=== PATIENT | female | born 1980 | race Caucasian/White ===

== ENCOUNTER 2017-01-29 19:02 | Emergency (ER) | payer OTHER ==
[~2017-01-29] VITALS: Ht 167.6 cm; Wt 73.9 kg
[~2017-01-29 19:02] MED LIST: ATENOLOL25 M1 PO; CELEXA20 MG PO; CLARITIN 10MG T10 MG PO; FLONASE16 GM; PREDNISONE 10MG10 MG PO; TRI-SPRINTEC1 TAB PO; ZITHROMAX Z PA250 MG PO
[2017-01-29] MEDS ORDERED: FLONASE 50 MCG16 GM (19:55)
[2017-01-29] MEDS ORDERED: MEDROL 4MG. DOSE4 MG PO (19:55)
[2017-01-29] MEDS ORDERED: BROMFED DM COU118 ML PO (19:55)
[2017-01-29] MEDS ORDERED: CEFDINIR 300MG300 MG PO (19:55)
--- NOTE | 2017-01-29 19:55 | Urgent Treatment Center Report ---
History of Present Issue Date/Time Seen by Provider 01/29/171929 Visit Reason Pt arrived:Walked Presenting Problem:PT C/O OF COUGH, SINUS PRESSURE, AND HEADACHE Location if Accident: Onset of symptoms date/time:/ or onset unknown for:MEDICAL HX UNKNOWN Have you (or family members/close friends) recently traveled outside the [place]? N If Yes, where/when: Have you had exposure to infectious disease within the past month? TB? Other? Specify: c/o cough, PND, sore throat, rhinorrhea, nasal congestion, unknown colored sputum x2 weeks now. "starting week 3". Initially started like allergies. Tried zyrtec week one. No improvement. Started claritin and decongestant week 2. Not helping. Denies SOA or wheezing. No fever or chills. No known sick contacts. Source patient Exam Limitations no limitations ALLERGIES Coded Allergies: MDX - Amoxicillin (Amoxicillin) (06/25/09) Converted from Generic Allergy: Amoxicillin Trihydrate Converted from Ingredient Allergy: Amoxicillin MDX - Citalopram (From CELEXA) (06/06/13) MDX - Penicillin (Penicillin) (06/25/09) Converted from Drug Class Allergy: Penicillins Converted from Ingredient Allergy: Penicillins Home Medications Reported Medications Atenolol 12.5 MG PO DAILY #15 Ethinyl Estradiol/Norgestima (Tri-Sprintec) 1 TAB PO DAILY Fluticasone Prop (Flonase) 1 SPRAY NA BID Loratadine (Claritin 10MG) 10 MG PO QHS History Medical History General CAD? No Angina: No WV: No Hypertension? No Hyperlipidemia? No CHF? No DVT? No PE? No COPD? No Asthma? Yes Anemia? No GERD? No Gastric ulcers? No GI Bleed? No Hernia? No Thyroid Problems? No Hypothyroidism? No CVA? No Seizures? No Diabetes? No Renal Insuffiency? No UTI? No Stones? No BPH? No GB Disease: No Nephritic Syndrome? No Asplenia? No Hepatitis? No Sickle Cell Disease? No Arthritis? No Migraines? No Cataracts? No Glaucoma? No MRSA? No HIV? No TB? No Anxiety? No Depression? No Cancer? No More? No Immunization HX DT/Tetanus UNKNOWN Surgical Hx Previous Surgery?Y KNEE SURGERY TONSILS REMOVED X 2 EAR TUBES Social History Smoking Hx Smoker: Never Smoker Tobacco: No Alcohol Alcohol: No Review of Systems All Other Systems Reviewed and Negative Constitutional see HPI, denies malaise Eyes denies drainage ENT see HPI, ear pain (fullness). denies: ear discharge, other (sinus pressure). Respiratory see HPI Cardiovascular denies chest pain Gastrointestinal denies no symptoms reported Musculoskeletal denies joint pain Skin denies rash Psychiatric/Neurological headache (mild, intermittent) Physical Exam Vital Signs Vital Signs Date Time Temp Pulse Resp B/P Pulse O2 O2 Flow FiO2 Ox Delivery Rate 01/29 1957 98.0 72 10 127/69 98 01/29 1945 98.0 72 10 127/ 98 General Appearance normal appearance, no apparent distress Eye Exam - bilateral eye normal exam Ear, Nose, Throat jocy EACs and TMs unremarkable, cobblestoning pharynx w/ thick PND, thick nasal drainage w/ congestion, no maxillary or frontal sinus tenderness Neck non-tender, supple Respiratory Status No: respiratory distress, productive cough, non productive cough. Lung Sounds anterior: lungs clear. posterior: lungs clear. bilateral: lungs clear. Cardiovascular regular rate/rhythm, no peripheral edema, no murmur Neurologic alert, oriented x 3 Mental status normal mood/affect Skin normal color, warm/dry Lymphatic no adenopathy Medical Decision Making LABS/Meds/Orders Pt receiving controlled substance in ED? No Departure Departure Time of Disposition 1951 Disposition DC Home or Self Care(routine) Clinical Impression Primary Impression: Upper respiratory infection Qualifiers: URI type: unspecified URI Qualified Code: J06.9 - Acute upper respiratory infection, unspecified Condition STABLE Referrals VICKI LI (Family) IMMEDIATELY for new or worsening symptoms OR no noticeable improvement over the next 48-72 hours. 911 for difficulty breathing or swallowing. Patient Instructions DI for Viral Upper Respiratory Infection -- Adult Additional Instructions * Monitor Temp. Follow up if fevers develop * Encourage fluids, water, gatorade, powerade, pedialyte if /toddler/child * warm salt water gargles * warm fluids * sore throat lozenges * sleep elevated * humidifier/vaporizer * flonase 2 sprays each nostril daily but may take 2-3 days to notice improvement with it. * Bromfed may cause drowsiness. Know how it effects you (or your child) before driving, caring for small children, or sending your child to school. No other antihistamines/allergy medications while taking bromfed. * Start steroid today. Helps with inflammation therefore, cough and wheezing. Follow directions on package. Rvwd side effects. Pt reports they have taken them before. * start antibiotic today. Be sure to complete entire prescription even if feeling better. Discharge Counseling Counseled pt/family regarding diagnosis, medications/RX, home care, follow up needs Prescriptions Current Visit Scripts CEFDINIR (Cefdinir) 300 MG PO BID #20 CAP D-METHORPHAN HB/P-EPD HCL/BPM (Bromfed Dm Cough Syrup) 10 ML PO QIDP PRN cough #240 ML Fluticasone Propionate (Flonase 50 Mcg Nasal [place]) 2 SPRAY NA DAILY #1 BOT Methylprednisolone (Medrol Dose Hakeem) 4 MG PO UD #1 HAKEEM TAKE DIRECTED ON PACKAGING at 2105
[2017-01-29 19:57] VITALS: BP 127/69
--- OUTSIDE RECORDS SUMMARY | 2017-01-30 15:24 | External Medical Summary Rpt | CCD ---
Author Author , FELICITAS POLK Address Unknown Phone [email or web address] Care Team Providers Care Audiology Assistant Name Role Phone ANDREE FLORIAN, Unavailable Unavailable ANDREE FLORIAN [facility] Unavailable Unavailable LAB, [facility] Maria Teresa LOGAN, DOREEN, Unavailable Unavailable VICKI HITCHCOCK HALL, Unavailable Unavailable JENNIFER VILLA Unavailable Unavailable [facility] Unavailable Unavailable CENTER, [facility] Unavailable Unavailable INC, [facility] GAGAN PEÑA, Unavailable Unavailable [facility] Unavailable Unavailable LABORATORY, [facility] Gabriela Valles MD, Unavailable Unavailable Gabriela Valles MD [facility] Unavailable [facility]available [facility] & CY[facility]Y Unavailable Unavailable LAB, [facility]Y & [facility]TOLOGY LAB REJI MOE, Unavailable Unavailable REJI MOE [facility] Unavailable Unavailable [address]591, [facility] # Unavailable Unavailable [id number], [facility] # [id number] Purpose Continuity of Care Document - 10-23-2008 through 2016 Problems Code Diagnosis DOS Provider Status 493.90 493.90 05-25-2013 [facility], [facility] UNSPECIFIED Hospital 535.00 535.00 05-25-2013 [facility] GASTRITIS, Hospital W/O MENTION OF HEMORRHAGE V14.0 V14.0 05-25-2013 [facility] IN ALLERGY Hospital V242 ROUTINE 08-08-2009 [facility] V7231 ROUTINE 08-08-2009 WOMEN[facility] GYNECOLOGIC HEALTH AL CLINIC OF EXAMINATION [facility] 605 REDUNDANT 06-25-2009 [facility] PHIMOSIS 96409 PREV C/S 06-25-2009 [facility] MENTION JOHN ANTPRTM [facility] COND V270 OUTCOME OF 06-25-2009 WOMEN'S DELIVERY HEALTH SINGLE CLINIC OF LIVEBORN JOHN [facility] V3001 SINGLE 06-25-2009 [facility] BY V221 SUPERVISION 06-20-2009 WOMEN'S OF OTHER HEALTH NORMAL CLINIC OF [place] [facility] 462 ACUTE 06-11-2009 NEW PHARYNGITIS [facility] PSC 3671 MYOPIA 05-22-2009 [facility] 24914 ABNORMAL 04-20-2009 WOMEN'S MATERNAL HEALTH GLUCOSE CLINIC OF [place] ANTEPARTUM [facility] V283 ENCOUNTER 02-15-2009 WOMEN'S ROUTINE HEALTH SCREEN CLINIC OF MALFORMATIO JOHN N [facility] ULTRASONIC V0481 NEED 02-09-2009 WOMEN'S PROPHYLACTI HEALTH C CLINIC OF VACCINATION [place] &INOCULATIO [facility] N FLU V220 SUPERVISION 01-12-2009 WOMEN'S OF NORMAL HEALTH FIRST CLINIC OF [place] [facility] 77863 OTHER 11-30-2008 WOMEN'S SPECIFED HEALTH COMPLICATIO CLINIC OF N JOHN ANTEPARTUM [facility] V745 SCREENING 11-22-2008 PATHOLOGY & EXAMINATION CYTOLOGY FOR LAB VENEREAL DISEASE V8271 SCREENING 11-22-2008 MOLECULAR FOR GENETIC PATHOLOGY DISEASE [facility] STATUS V7242 10-23-2008 [facility] EXAMINATION HEALTH OR TEST CENTRAL POSITIVE BANK ACCT RESULT Allergies, Adverse Reactions, Alerts Type Drug Allergy Adverse Reaction to Substance Substance Reaction Severity Penicillin Unknown Unknown Amoxicillin Unknown Unknown Medications Na ND Rx Da Fi Fi Am Da Di Ph RX Ph St me C No te ll ll ou ys ag ar # ys at rm s nt no ma ic us Or Da si cy ia de te s n re d SO 00 02 0 No DI 40 -1 UM 97 9- Lo 98 20 ng CH 30 14 er LO 9 RI Ac DE ti ve 0. 9% SO FRANCISCO TI ON ON 00 02 0 No DA 64 -1 NS 16 9- Lo ET 08 20 ng RO 02 14 er N 5 HC Ac L ti 4 ve MG /2 ML AL Ib 62 02 0 No up 58 -1 ro 40 9- Lo fe 74 20 ng n 70 14 er 60 1 0M Ac G ti Ta ve bl et OX 00 03 03 0 30 2 WA 22 CL Ac YC 40 -2 -2 .0 L- 17 AR ti OD 60 5- 5- 00 MA 66 KE ve ON 51 20 20 RT 9 E- 20 10 10 DE AC 1 PH RE ET AR K AM MA J IN CY OP # HE N 10 5- 05 32 91 5 [place] 00 03 03 1 60 7 [place] [address] 60 -2 -2 .0 L- 64 OP ti AT 31 5- 5- 00 MA 12 ER ve IN 48 20 20 RT 2 14 10 10 TOR 10 9 PH HN 0, AR G 00 MA 0 CY UN # IT /M 10 L 05 JIM 91 SP 00 11 03 9 30 30 WA 88 CL Ac 67 -0 -1 .0 L- 14 AR ti 70 6- 4- 00 MA 96 KE ve 07 20 20 RT 4 01 09 10 DE 0 PH RE AR K MA J CY # 10 05 91 00 03 03 0 30 10 WA 70 LEE Ac 07 -0 -0 .0 L- 61 LL ti 46 8- 8- 00 MA 57 ve 32 20 20 RT 2 LI 01 10 10 SA 3 PH R AR MA CY # 10 05 91 00 11 01 01 30 30 WA 88 CL Ac 67 -0 -2 .0 L- 14 AR ti 70 6- 8- 00 MA 96 KE ve 07 20 20 RT 4 01 09 10 DE 0 PH RE AR K MA J CY #5 91 00 11 11 00 30 30 WA 88 CL Ac 67 -0 -1 .0 L- 14 AR ti 70 6- 9- 00 MA 96 KE ve 07 20 20 RT 4 01 09 09 DE 0 PH RE AR K MA J CY #5 91 Vital Signs 05-25-2013 02:12 Name Value Interpretat Reference Comment ion Range Body 98.2 [degF] Temperature BP 77 mm[Hg] Diastolic BP Systolic 112 mm[Hg] Heart 66 /min Rate/Pulse O2% 98 % Respiratory 18 /min Rate 05-25-2013 00:29 Name Value Interpretat Reference Comment ion Range BP 71 mm[Hg] Diastolic BP Systolic 130 mm[Hg] Heart 74 /min Rate/Pulse O2% 97 % Respiratory 20 /min Rate Results Labs Lab Lab Date Result Refere Interp Status Commen Order Detail nces retati t Range on COMPREHENSIVE METABOLIC PANEL (05-24-2013 23:30) Glucose 96 74-106 complet 014 mg/dL ed Bld-mCn 23:30 c BUN 12 7-18 complet Bld-mCn 014 mg/dL ed c 23:30 Creat 05-24-2 0.9 0.6-1.0 complet SerPl-m 014 mg/dL ed Cnc 23:30 Creat 05-24-2 95 50-200 complet Cl 014 ML/MIN ed predict 23:30 ed SerPl C-G-vRa te GFR/BSA 72 59- complet .pred 014 ML/MIN ed SerPl 23:30 Schwart z-vRate Sodium 140 136-145 complet SerPl-s 014 mmoL/L ed Cnc 23:30 Potassi 4.1 3.5-5.1 complet um 014 mmoL/L ed SerPl-s 23:30 Cnc Chlorid 103 98-107 complet e 014 mmoL/L ed SerPl-s 23:30 Cnc CO2 27 21.0-32 complet SerPl-s 014 mmoL/L .0 ed Cnc 23:30 Calcium 05-24-2 8.8 8.5-10. complet 014 mg/dL 1 ed SerPl-m 23:30 Cnc Prot 7.8 6.4-8.2 complet SerPl-m 014 gm/dL ed Cnc 23:30 Albumin 05-24-2 4.1 3.4-5.0 complet 014 gm/dL ed SerPl-m 23:30 Cnc Globuli 05-24- 3.7 1.3-3.2 complet n 014 gm/dL ed Ser-mCn 23:30 c Albumin 05-24- 1.1 UNK 1.1-1.8 complet /Glob 014 ed SerPl-m 23:30 Rto Bilirub 0.6 0.2-1.0 complet 014 mg/dL ed SerPl-m 23:30 Cnc AST 05-24-2 8 U/L 15-37 complet SerPl-c 014 ed Cnc 23:30 ALT 05-24- 19 U/L 12-78 complet SerPl-c 014 ed Cnc 23:30 ALP 05-24- 60 U/L 50-136 complet SerPl-c 014 ed Cnc 23:30 B-HCG Ur Ql (05-24-2013 00:50) B-HCG 02-18-2 NEGATIV NEG complet Ur Ql 014 E ed 00:50 URINALYSIS/COMPLETE (05-24-2013 00:50) URINE -18-2 YELLOW YELLOW complet COLOR 014 ed 00:50 URINE 02-18-2 CLEAR CLEAR complet APPEARA 014 ed NCE 00:50 URINE 02-18-2 NEGATIV NEG complet GLUCOSE 014 E ed - 00:50 DIPSTIC K URINE 02-18-2 NEGATIV NEG complet BILIRUB 014 E ed IN - 00:50 DIPSTIC K URINE 02-18-2 NEGATIV NEG complet KETONE 014 E mg/dL ed 00:50 URINE -18-2 1.020 1.005-1 complet SPECIFI 014 UNK .030 ed C 00:50 GRAVITY URINE -18-2 3+ NEG complet BLOOD 014 ed 00:50 URINE -18-2 6.0 UNK 5.0-8.5 complet PH 014 ed 00:50 URINE -18-2 NEGATIV NEG complet PROTEIN 014 E mg/dL ed - 00:50 DIPSTIC K URINE -18-2 0.2 NEG complet UROBILI 014 E.U./dL ed NOGEN - 00:50 DIPSTIC K URINE 02-18-2 NEGATIV NEG complet NITRATE 014 E ed - 00:50 DIPSTIC K URINE 02-18-2 NEGATIV NEG complet LEUK 014 E ed ESTERAS 00:50 E URINE 02-18-2 50-100 0 complet RBC 014 rbc/hpf ed 00:50 URINE 02-18-2 OCC O complet WBC 014 wbc/hpf ed 00:50 URINE -18-2 20-50 0-5 complet SQUAMOU 014 #/hpf ed S CELLS 00:50 Procedures Procedure DOS Code Location Performer Comment CYTP C/V 30833 PATHOLOGY PATHOLOGY AUTO THIN 0 & & LYR CYTOLOGY CYTOLOGY PREPJ SCR LAB LAB MNL RESCR [facility] 630[address] Maria Teresa MONTOYA DISCHARGE 0 CARE G DAY ASSOCIATE MANAGEMEN S T 30 MIN/< SUBQ 12834 [facility] 0 CARE G CARE PER ASSOCIATE DAY E/M S NORMAL CIRCUMCIS 75504 Maria Teresa MONTOYA ION 0 CARE G W/CLAMP/O ASSOCIATE TH DEV S W/BLOCK 35357 [facility], DELIVERY 0 HEALTH ANDREE J ONLY CLINIC OF W/POSTPAR [facility] CARE [place] [facility] 1ST 88092 FAMILY DOREEN, J HOSP/FAHAD 0 CARE G [facility] [place] [address] [facility] DELIVERY 0 PHYSICIAN POPPY ONLY GROUP PCC ANESTHESI 80198 COMMUNITY Maxx MOE 0 ANESTH REJI A OF THE DELIVERY [facility] ONLY LOW 741 [facility] CERVICAL 0 [facility] INC SECTION CUL BACT 85225 [facility] XCPT 0 CLINIC CLINIC URINE LABORATOR LABORATOR BLOOD/STO Y Y OL AEROBIC ISOL CUL BACT 65311 [facility]BINED XCPT 0 PHYSICIAN PHYSICIAN URINE S LAB S LAB BLOOD/STO OL AEROBIC ISOL OPHTH 43677 [facility] 0 VISION GAGAN A XM&EVAL COMPRHNSV ESTAB PT 1/> GLUCOSE 51994 [facility], TOLERANCE 0 HEALTH ANDREE J TEST GTT CLINIC OF 3 SPECIMENS [facility] GLUCOSE 18423 [facility], POST 0 HEALTH ANDREE J GLUCOSE CLINIC OF DOSE [facility] US PREG 46777 [facility], UTERUS 9 HEALTH ANDREE J AFTER 1ST CLINIC OF TRIMEST [place] [facility] IMMUNE 94052 [facility], ADMIN 9 HEALTH ANDREE J H1N1 CLINIC OF IM/NASAL INCL CNSL [facility] GONADOTRO 79428 [facility] S[facility]ERS PIN 9 [facility] CHORIONIC INC INC QUANTITAT GRAYSON ALPHA-FET 03898 [facility] OPROTEIN 9 [facility] [place] [place] [address] T[facility] SANDERS ESTRIOL 9 [facility] INC INC [place] PREG 10753 [facility], UTERUS 9 HEALTH ANDREE J REAL TIME CLINIC OF W/IMAGE DCMTN [place] [facility] CYTP C/V 89044 PATHOLOGY PATHOLOGY AUTO THIN 9 & & LYR CYTOLOGY CYTOLOGY PREPJ SCR LAB LAB MNL RESCR PHYS MOLECULAR 09205 MOLECULAR MOLECULAR DX AMP 9 TARGET PATHOLOGY PATHOLOGY MULTIPLEX LAB LAB 1ST 2 NETWORK NETWORK SEQ INC INC MOLECULAR 11809 MOLECULAR MOLECULAR 9 DIAGNOSTI PATHOLOGY PATHOLOGY CS LAB LAB INTERPRET NETWORK NETWORK ATION & INC INC REPORT MUTATION 18621 MOLECULAR MOLECULAR ID 9 ENZYMATIC PATHOLOGY PATHOLOGY LAB LAB LIG/PRIME NETWORK NETWORK R XTN 1 INC INC SGM EA MOLECULAR 63512 MOLECULAR MOLECULAR DX AMP 9 TARGET PATHOLOGY PATHOLOGY MULTIPLEX LAB LAB EA ADDL NETWORK NETWORK SEQ INC INC MOLEC 29106 MOLECULAR MOLECULAR SEP&ID HI 9 RESOLU PATHOLOGY PATHOLOGY TQ EACH LAB LAB NUCLEIC NETWORK NETWORK ACID PREP INC INC IADNA 65966 PATHOLOGY PATHOLOGY NEISSERIA 9 & & CYTOLOGY CYTOLOGY GONORRHOE LAB LAB AE AMPLIFIED PROBE TQ MOLEC 14722 MOLECULAR MOLECULAR ISOL/XTRJ 9 HP PATHOLOGY PATHOLOGY NUCLEIC LAB LAB ACID EA NETWORK NETWORK TYPE INC INC IADNA 64447 PATHOLOGY PATHOLOGY CHLAMYDIA 9 & & CYTOLOGY CYTOLOGY TRACHOMAT LAB LAB IS AMPLIFIED PROBE TQ URINE 67228 [facility] TOMMY 9 HEALTH CO HEALTH TEST C[facility]AL [facility]ENTER VISUAL BANK ACCT COLOR CMPRSN METHS Encounters Encounter Start End Date Code Location Performer Type Date Emergency HERNÁN Valles MD (ER) 4 23:28 4 02:13 [facility] OFFICE 30000 [facility], OUTPATIEN 0 0 HEALTH ANDREE J T VISIT CLINIC OF 25 MINUTES [facility] OFFICE 69103 [facility], OUTPATIEN 0 0 HEALTH ANDREE J T VISIT CLINIC OF 15 MINUTES [facility] TOMMY - 0 0 [facility] IN[facility]IENT INC OFFICE 04722 [facility], OUTPATIEN 0 0 HEALTH ANDREE J T VISIT CLINIC OF 15 MINUTES [facility] OFFICE 56012 [facility], OUTPATIEN 0 0 HEALTH ANDREE J T VISIT CLINIC OF 15 MINUTES [facility] OFFICE 72052 [facility] OUTPATIEN 0 0 [place] [facility] T VISIT CLINIC 15 PSC MINUTES OFFICE 23860 [facility], OUTPATIEN 0 0 HEALTH ANDREE J T VISIT CLINIC OF 15 MINUTES [facility] OFFICE 34264 [facility], OUTPATIEN 0 0 HEALTH ANDREE J T VISIT CLINIC OF 15 MINUTES [facility] OFFICE 65113 [facility], OUTPATIEN 0 0 HEALTH ANDREE J T VISIT CLINIC OF 15 MINUTES [facility] OFFICE 62341 [facility], OUTPATIEN 0 0 HEALTH ANDREE J T VISIT 5 CLINIC OF MINUTES [facility] TOMMY - 0 0 [facility] OUTPATIEN INC T OFFICE 05572 [facility], OUTPATIEN 0 0 HEALTH ANDREE J T VISIT CLINIC OF 15 MINUTES [facility] OFFICE 95439 [facility], OUTPATIEN 9 9 HEALTH ANDREE J T VISIT CLINIC OF 15 MINUTES [facility] OFFICE 85643 [facility], OUTPATIEN 9 9 HEALTH ANDREE J T VISIT CLINIC OF 15 MINUTES [facility] OFFICE 84929 [facility], OUTPATIEN 9 9 HEALTH ANDREE J T VISIT CLINIC OF 15 MINUTES [facility] TOMMY - 9 9 [facility] OUTPATIEN INC T OFFICE 30718 [facility], OUTPATIEN 9 9 HEALTH ANDREE J T VISIT CLINIC OF 15 MINUTES [facility] OFFICE 74647 [facility], OUTPATIEN 9 9 HEALTH ANDREE J T VISIT CLINIC OF 15 MINUTES [facility] OFFICE 78164 [facility] TOMMY OUTPATIEN 9 9 HEALTH CO HEALTH T [facility] 15 BANK ACCT MINUTES
--- OUTSIDE RECORDS SUMMARY | 2017-01-30 15:24 | External Medical Summary Rpt | CCD ---
Author Author , FELICITAS POLK Address Unknown Phone [email or web address] Care Team Providers Care Automat Car Attendant Name Role Phone ANDREE FLORIAN, Unavailable Unavailable ANDREE FLORIAN [facility] Unavailable Unavailable LAB, [facility] Maria Teresa LOGAN, DOREEN, Unavailable Unavailable VICKI HITCHCOCK HALL, Unavailable Unavailable JENNIFER VILLA Unavailable Unavailable POPPY [facility] Unavailable Unavailable CENTER, [facility] Unavailable Unavailable INC, [facility] GAGAN PEÑA, Unavailable Unavailable GAGAN PEÑA [facility] Unavailable Unavailable LABORATORY, [facility] Gabriela Valles MD, Unavailable Unavailable Gabriela Valles MD [facility] Unavailable Unavailable [facility], [facility] PATHOLOGY & CYTOLOGY Unavailable Unavailable LAB, PATHOLOGY & CYTOLOGY LAB REJI MOE, Unavailable Unavailable REJI MOE [facility] Unavailable Unavailable #591, [facility]591 [facility] # Unavailable Unavailable [id number], [facility] # [id number] Purpose Continuity of Care Document - 10-23-2008 through 2016 Problems Code Diagnosis DOS Provider Status 493.90 493.90 05-25-2013 [facility], [facility] UNSPECIFIED Hospital 535.00 535.00 05-25-2013 [facility] GASTRITIS, Hospital W/O MENTION OF HEMORRHAGE V14.0 V14.0 05-25-2013 [facility] IN ALLERGY Hospital V242 ROUTINE 08-08-2009 [facility] V7231 ROUTINE 08-08-2009 WOMEN'S GYNECOLOGIC HEALTH AL CLINIC OF EXAMINATION [facility] 605 REDUNDANT 06-25-2009 [facility] PHIMOSIS 51126 PREV C/S 06-25-2009 [facility] CL[facility] MENTION JOHN ANTPRTM [facility] COND V270 OUTCOME OF 06-25-2009 WOMEN'S DELIVERY HEALTH SINGLE CLINIC OF LIVEBORN JOHN [facility] V3001 SINGLE 06-25-2009 [facility] BY V221 SUPERVISION 06-20-2009 WOMEN'S OF OTHER HEALTH NORMAL CLINIC OF [place] [facility] 462 ACUTE 06-11-2009 NEW PHARYNGITIS [facility] PSC 3671 MYOPIA 05-22-2009 [facility] 45304 ABNORMAL 04-20-2009 WOMEN'S MATERNAL HEALTH GLUCOSE CLINIC OF TOLERANCE [place] ANTEPARTUM [facility] V283 ENCOUNTER 02-15-2009 WOMEN'S ROUTINE HEALTH SCREEN CLINIC OF MALFORMATIO JOHN N [facility] ULTRASONIC V0481 NEED 02-09-2009 WOMEN'S PROPHYLACTI HEALTH C CLINIC OF VACCINATION [place] &INOCULATIO [facility] N FLU V220 SUPERVISION 01-12-2009 WOMEN'S OF NORMAL HEALTH FIRST CLINIC OF [place] [facility] 84221 OTHER 11-30-2008 WOMEN'S SPECIFED HEALTH COMPLICATIO CLINIC OF N JOHN ANTEPARTUM [facility] V745 SCREENING 11-22-2008 PATHOLOGY & EXAMINATION CYTOLOGY [...] DOS Code Location Performer Comment CYTP C/V 82913 PATHOLOGY PATHOLOGY AUTO THIN 0 & & LYR CYTOLOGY CYTOLOGY PREPJ SCR LAB LAB MNL RESCR [facility] 17991 Maria Teresa MONTOYA DISCHARGE 0 CARE G DAY ASSOCIATE MANAGEMEN S T 30 MIN/< SUBQ 11838 FAMILY LOGAN Maria Teresa [facility] 0 CARE G CARE PER ASSOCIATE DAY E/M S NORMAL CIRCUMCIS 45441 Maria Teresa MONTOYA ION 0 CARE G W/CLAMP/O ASSOCIATE TH DEV S W/BLOCK 96730 [facility], DELIVERY 0 HEALTH ANDREE J ONLY CLINIC OF W/POSTPAR [place]SCAR CARE [place] [facility] 1ST 67836 FAMILY DOREEN, J HOSP/FAAHD 0 CARE G [facility] [place] [address] [facility] HARPEL DELIVERY 0 PHYSICIAN POPPY ONLY GROUP PCC ANESTHESI 07071 COMMUNITY Maxx MOE 0 ANESTH REJI A OF THE DELIVERY [facility] ONLY LOW 741 TOMMY SANDERS CERVICAL 0 [facility] INC INC SECTION CUL BACT 93605 [facility] XCPT 0 CLINIC CLINIC URINE LABORATOR LABORATOR BLOOD/STO Y Y OL AEROBIC ISOL CUL BACT 64010 [facility] XCPT 0 PHYSICIAN PHYSICIAN URINE S LAB S LAB BLOOD/STO OL AEROBIC ISOL OPHTH 94406 [facility] 0 VISION GAGAN A XM&EVAL COMPRHNSV ESTAB PT 1/> GLUCOSE 32864 [facility], TOLERANCE 0 HEALTH ANDREE J TEST GTT CLINIC OF 3 SPECIMENS [facility] GLUCOSE 83924 [facility], POST 0 HEALTH ANDREE J GLUCOSE CLINIC OF DOSE [facility] [place] PREG 42172 [facility], UTERUS 9 HEALTH ANDREE J AFTER 1ST CLINIC OF TRIMEST [place] GESTATION [facility] IMMUNE 85009 [facility], ADMIN 9 HEALTH ANDREE J H1N1 CLINIC OF IM/NASAL INCL CNSL [facility] GONADOTRO 90100 TOMMY SANDERS PIN 9 [facility] CHORIONIC INC INC QUANTITAT GRAYSON ALPHA-FET 76194 TOMMY SANDERS OPROTEIN 9 [facility] [place] [address] TOMMY SANDERS ESTRIOL 9 [facility] [place] PREG 26445 [facility], UTERUS 9 HEALTH ANDREE J REAL TIME CLINIC OF W/IMAGE DCMTN [place] TRANSVAG [facility] CYTP C/V 82107 PATHOLOGY PATHOLOGY AUTO THIN 9 & & LYR CYTOLOGY CYTOLOGY PREPJ SCR LAB LAB MNL RESCR PHYS MOLECULAR 31271 MOLECULAR MOLECULAR DX AMP 9 TARGET PATHOLOGY PATHOLOGY MULTIPLEX LAB LAB 1ST 2 NETWORK NETWORK SEQ INC INC MOLECULAR 93991 MOLECULAR MOLECULAR 9 DIAGNOSTI PATHOLOGY PATHOLOGY CS LAB LAB INTERPRET NETWORK NETWORK ATION & INC INC REPORT MUTATION 46910 MOLECULAR MOLECULAR ID 9 ENZYMATIC PATHOLOGY PATHOLOGY LAB LAB LIG/PRIME NETWORK NETWORK R XTN 1 INC INC SGM EA MOLECULAR 89824 MOLECULAR MOLECULAR DX AMP 9 TARGET PATHOLOGY PATHOLOGY MULTIPLEX LAB LAB EA ADDL NETWORK NETWORK SEQ INC INC MOLEC 52949 MOLECULAR MOLECULAR SEP&ID HI 9 RESOLU PATHOLOGY PATHOLOGY TQ EACH LAB LAB NUCLEIC NETWORK NETWORK ACID PREP INC INC IADNA 20480 PATHOLOGY PATHOLOGY NEISSERIA 9 & & CYTOLOGY CYTOLOGY GONORRHOE LAB LAB AE AMPLIFIED PROBE TQ MOLEC 64865 MOLECULAR MOLECULAR ISOL/XTRJ 9 HP PATHOLOGY PATHOLOGY NUCLEIC LAB LAB ACID EA NETWORK NETWORK TYPE INC INC IADNA 13274 PATHOLOGY PATHOLOGY CHLAMYDIA 9 & & CYTOLOGY CYTOLOGY TRACHOMAT LAB LAB IS AMPLIFIED PROBE TQ URINE 24626 DHS/CO TOMMY 9 HEALTH [facility] VISUAL BANK ACCT COLOR CMPRSN METHS Encounters Encounter Start End Date Code Location Performer Type Date Emergency HERNÁN Valles MD (ER) 4 23:28 4 02:13 [facility] OFFICE 40747 [facility], OUTPATIEN 0 0 HEALTH ANDREE J T VISIT CL[facility]IC OF 25 MINUTES [facility] OFFICE 26623 [facility], OUTPATIEN 0 0 HEALTH ANDREE J T VISIT CLINIC OF 15 MINUTES [facility] TOMMY - 0 0 [facility] INPATIENT INC OFFICE 77265 [facility], OUTPATIEN 0 0 HEALTH ANDREE J T VISIT CLINIC OF 15 MINUTES [facility] OFFICE 58701 [facility], OUTPATIEN 0 0 HEALTH ANDREE J T VISIT CLINIC OF 15 MINUTES [facility] OFFICE 70505 [place] LI OUTPATIEN 0 0 [place] V[facility] T VISIT CLINIC 15 PSC MINUTES OFFICE 71595 [facility], OUTPATIEN 0 0 HEALTH ANDREE J T VISIT CLINIC OF 15 MINUTES [facility] OFFICE 02372 [facility], OUTPATIEN 0 0 HEALTH ANDREE J T VISIT CLINIC OF 15 MINUTES [facility] OFFICE 65734 [facility], OUTPATIEN 0 0 HEALTH ANDREE J T VISIT CLINIC OF 15 MINUTES [facility] OFFICE 83393 [facility], OUTPATIEN 0 0 HEALTH ANDREE J T VISIT 5 CLINIC OF MINUTES [facility] TOMMY - 0 0 [facility] OUTPATIEN INC T OFFICE 06337 [facility], OUTPATIEN 0 0 HEALTH ANDREE J T VISIT CLINIC OF 15 MINUTES [facility] OFFICE 09736 [facility], OUTPATIEN 9 9 HEALTH ANDREE J T VISIT CLINIC OF 15 MINUTES [facility] OFFICE 48693 [facility], OUTPATIEN 9 9 HEALTH ANDREE J T VISIT CLINIC OF 15 MINUTES [facility] OFFICE 19363 [facility], OUTPATIEN 9 9 HEALTH ANDREE J T VISIT CLINIC OF 15 MINUTES [facility] TOMMY - 9 9 [facility] OUTPATIEN INC T OFFICE 41701 [facility], OUTPATIEN 9 9 HEALTH ANDREE J T VISIT CLINIC OF 15 MINUTES [facility] OFFICE 83090 [facility], OUTPATIEN 9 9 HEALTH ANDREE J T VISIT CLINIC OF 15 MINUTES [facility] OFFICE 66507 DHS/CO TOMMY OUTPATIEN 9 9 HEALTH CO HEALTH T VISIT [facility] 15 BANK ACCT MINUTES
--- OUTSIDE RECORDS SUMMARY | 2017-01-30 15:25 | External Medical Summary Rpt | CCD ---
Author Author , FELICITAS Elizabeth FELICITAS Address Unknown Phone [email or web address] Care Team Providers Care Information Assurance Specialist Name Role Phone ANDREE FLORIAN, Unavailable Unavailable ANDREE FLORIAN [facility] Unavailable Unavailable LAB, [facility] Maria Teresa LOGAN, DOREEN, Unavailable Unavailable VICKI HITCHCOCK HALL, Unavailable Unavailable VICKI Welsh HARPEGamal POPPY, HARPEL Unavailable Unavailable POPPY [facility] Unavailable Unavailable CENTER, [facility] Unavailable Unavailable INC, [facility] GAGAN PEÑA, Unavailable Unavailable GAGAN PEÑA [facility] Unavailable Unavailable LABORATORY, [facility] MOLECULAR PATHOLOGY Unavailable Unavailable [facility], MOLECULAR PATHOLOGY LAB NETWORK [facility] PATHOLOGY & CYTOLOGY Unavailable Unavailable LAB, PATHOLOGY & CYTOLOGY LAB REJI MOE, Unavailable Unavailable REJI MOE [facility] Unavailable Unavailable #591, [facility] #591 [facility] # Unavailable Unavailable [id number], [facility] # [id number] Purpose Continuity of Care Document - 10-23-2008 through 2016 Problems Code Diagnosis DOS Provider Status V242 ROUTINE 08-08-2009 WOMEN'S HEALTH FOLLOW-UP [facility]IN[facility] OF [facility] V7231 ROUTINE 08-08-2009 WOMEN'S GYNECOLOGIC HEALTH VT CLINIC OF EXAMINATION [facility] 605 REDUNDANT 06-25-2009 [facility] PHIMOSIS 38248 PREV C/S 06-25-2009 [facility] W/WO CLINIC OF MENTION [facility] COND V270 OUTCOME OF 06-25-2009 WOMEN'S DELIVERY HEALTH SINGLE CLINIC OF [facility]IVEBORN [facility] V3001 SINGLE 06-25-2009 [facility] BY V221 SUPERVISION 06-20-2009 WOMEN'S OF OTHER HEALTH NORMAL [facility] OF [facility] 462 ACUTE 06-11-2009 NEW PHARYNGITIS [facility] PSC 3671 MYOPIA 05-22-2009 [facility] 37098 ABNORMAL 04-20-2009 WOMEN'S MATERNAL HEALTH GLUCOSE CLINIC OF TOLERANCE [place] [facility] V283 ENCOUNTER 02-15-2009 WOMEN'S ROUTINE HEALTH SCREEN CLINIC OF MALFORMATIO [place] N [facility] ULTRASONIC V0481 NEED 02-09-2009 WOMEN'S PROPHYLACTI HEALTH C CLINIC OF VACCINATION [place] &INOCULATIO [facility] N FLU V220 SUPERVISION 01-12-2009 WOMEN'S OF NORMAL HEALTH FIRST CLINIC OF [place] [facility] 65482 OTHER 11-30-2008 WOMEN'S SPECIFED HEALTH COMPLICATIO CLINIC OF N [place] [facility] V745 SCREENING 11-22-2008 PATHOLOGY & EXAMINATION CYTOLOGY FOR LAB VENEREAL DISEASE V8271 SCREENING 11-22-2008 MOLECULAR FOR GENETIC PATHOLOGY DISEASE LAB NETWORK [facility] STATUS V7242 10-23-2008 DHS/CO EXAMINATION HEALTH OR TEST CENTRAL POSITIVE BANK ACCT RESULT Medications Na ND Rx Da Fi Fi Am Da Di Ph RX Ph St me C No te ll ll ou ys ag ar # ys at rm s nt no ma ic us Or Da si cy ia de te s n re d OX 00 03 03 0 30 2 [...] 10 DE 0 PH RE AR K ALTAF [place] #5 91 00 11 11 00 30 30 WA 88 CL Ac 67 -0 -1 .0 L- 14 AR ti 70 6- 9- 00 MA 96 KE ve 07 20 20 RT 4 01 09 09 DE 0 PH RE AR K ALTAF [place] #5 91 Procedures Procedure DOS Code Location Performer Comment CYTP C/V 92439 PATHOLOGY PATHOLOGY AUTO THIN 0 & & LYR CYTOLOGY CYTOLOGY PREPJ SCR LAB LAB MNL RESCR [facility] 27965 FAMILY LOGANMaria Teresa DISCHARGE 0 CARE G DAY ASSOCIATE MANAGEMEN S T 30 MIN/< SUBQ 01969 Maria Teresa [facility] 0 CARE G CARE PER ASSOCIATE DAY E/M S NORMAL CIRCUMCIS 57836 Maria Teresa LOGAN ION 0 CARE G W/CLAMP/O ASSOCIATE TH DEV S W/BLOCK LOW 741 TOMMY SANDERS CERVICAL 0 [facility] INC INC SECTION 1ST 90253 Maria Teresa LOGAN HOSP/FAHAD 0 CARE G [facility] S CARE PER DAY NML NB ANESTHESI 97678 [facility] Maxx MOE 0 ANESTH REJI A OF THE DELIVERY [place] ONLY 06532 [facility] HARPEL DELIVERY 0 PHYSICIAN POPPY ONLY GROUP PCC 87898 [facility], DELIVERY 0 HEALTH ANDREE J ONLY CLINIC OF W/POSTPAR OSCAR CARE [facility] CUL BACT 77910 [facility] XCPT 0 CLINIC CLINIC URINE LABORATOR LABORATOR BLOOD/STO Y Y OL AEROBIC ISOL CUL BACT 47166 COMBINED COMBINED XCPT 0 PHYSICIAN PHYSICIAN URINE S LAB S LAB BLOOD/STO OL AEROBIC ISOL OPHTH 43625 CORA PEÑA, MEDICAL 0 VISION GAGAN A XM&EVAL COMPRHNSV ESTAB PT 1/> GLUCOSE 26146 [facility], POST 0 HEALTH ANDREE J GLUCOSE CLINIC OF DOSE [facility] GLUCOSE 49265 [facility], TOLERANCE 0 HEALTH ANDREE J TEST GTT CLINIC OF 3 SPECIMENS [facility] [place] PREG 59711 [facility], UTERUS 9 HEALTH ANDREE J AFTER 1ST CLINIC OF TRIMEST [place] [facility] IMMUNE 83741 [facility], ADMIN 9 HEALTH ANDREE J H1N1 CLINIC OF IM/NASAL INCL CNSL [place] [facility] [place] [address] TOMMY SANDERS ESTRIOL 9 [facility] INC INC GONADOTRO 10516 TOMMY SANDERS PIN 9 [facility] CHORIONIC INC INC QUANTITAT GRAYSON ALPHA-FET 67329 TOMMY SANDERS OPROTEIN 9 [facility] SERUM INC [place] PREG 21878 [facility], UTERUS 9 HEALTH ANDREE J REAL TIME CLINIC OF W/IMAGE DCMTN [place] [facility]SV[facility] IADNA 88921 PATHOLOGY PATHOLOGY NEISSERIA 9 & & CYTOLOGY CYTOLOGY GONORRHOE LAB LAB AE AMPLIFIED PROBE TQ MOLECULAR 12303 MOLECULAR MOLECULAR DX AMP 9 TARGET PATHOLOGY PATHOLOGY MULTIPLEX LAB LAB EA ADDL NETWORK NETWORK SEQ INC INC MOLEC 00522 MOLECULAR MOLECULAR SEP&ID HI 9 RESOLU PATHOLOGY PATHOLOGY TQ EACH LAB LAB NUCLEIC NETWORK NETWORK ACID PREP INC INC MOLEC 16577 MOLECULAR MOLECULAR ISOL/XTRJ 9 HP PATHOLOGY PATHOLOGY NUCLEIC LAB LAB ACID EA NETWORK NETWORK TYPE INC INC IADNA 93520 PATHOLOGY PATHOLOGY CHLAMYDIA 9 & & CYTOLOGY CYTOLOGY TRACHOMAT LAB LAB IS AMPLIFIED PROBE TQ CYTP C/V 81577 PATHOLOGY PATHOLOGY AUTO THIN 9 & & LYR CYTOLOGY CYTOLOGY PREPJ SCR LAB LAB MNL RESCR PHYS MOLECULAR 55908 MOLECULAR MOLECULAR DX AMP 9 TARGET PATHOLOGY PATHOLOGY MULTIPLEX LAB LAB 1ST 2 NETWORK NETWORK SEQ INC INC MOLECULAR 90220 MOLECULAR MOLECULAR 9 DIAGNOSTI PATHOLOGY PATHOLOGY CS LAB LAB INTERPRET NETWORK NETWORK ATION & INC INC REPORT MUTATION 05930 MOLECULAR MOLECULAR ID 9 ENZYMATIC PATHOLOGY PATHOLOGY LAB LAB LIG/PRIME NETWORK NETWORK R XTN 1 INC INC SGM EA URINE 97058 [facility] TOMMY 9 HEALTH [facility] VISUAL BANK ACCT COLOR CMPRSN METHS Encounters Encounter Start End Date Code Location Performer Type Date OFFICE 58013 [facility] OUTPATIEN 0 0 HEALTH ANDREE J T VISIT CLINIC OF 25 MINUTES [facility] OFFICE 37063 [facility], OUTPATIEN 0 0 HEALTH ANDREE J T VISIT CLINIC OF 15 MINUTES [facility] TOMMY - 0 0 [facility] INPATIENT INC OFFICE 26279 [facility], OUTPATIEN 0 0 HEALTH ANDREE J T VISIT CLINIC OF 15 MINUTES [facility] OFFICE 82855 [facility], OUTPATIEN 0 0 HEALTH ANDREE J T VISIT CLINIC OF 15 MINUTES [facility] OFFICE 05352 [facility] LI, OUTPATIEN 0 0 SANDRA VICKI R T VISIT CLINIC 15 PSC MINUTES OFFICE 14414 [facility], OUTPATIEN 0 0 HEALTH ANDREE J T VISIT CLINIC OF 15 MINUTES [facility] OFFICE 55996 [facility], OUTPATIEN 0 0 HEALTH ANDREE J T VISIT CLINIC OF 15 MINUTES [facility] OFFICE 34272 [facility], OUTPATIEN 0 0 HEALTH ANDREE J T VISIT CLINIC OF 15 MINUTES [facility] OFFICE 60362 [facility], OUTPATIEN 0 0 HEALTH ANDREE J T VISIT 5 CLINIC OF MINUTES [facility] TOMMY - 0 0 [facility] OUTPATIEN INC T OFFICE 09159 [facility], OUTPATIEN 0 0 HEALTH ANDREE J T VISIT CLINIC OF 15 MINUTES [facility] OFFICE 42410 [facility], OUTPATIEN 9 9 HEALTH ANDREE J T VISIT CLINIC OF 15 MINUTES [facility] OFFICE 25136 [facility], OUTPATIEN 9 9 HEALTH ANDREE J T VISIT CLINIC OF 15 MINUTES [facility] OFFICE 46657 [facility], OUTPATIEN 9 9 HEALTH ANDREE J VISIT CLINIC OF 15 MINUTES [facility] TOMMY - 9 9 [facility] OUTPATIEN INC T OFFICE 36583 [facility] OUTPATIEN 9 9 HEALTH ANDREE J VISIT CLINIC OF 15 MINUTES [facility] OFFICE 07996 W[facility] ANDREE J VISIT CLINIC OF 15 MINUTES [facility] OFFICE 47698 [facility] 9 HEALTH CO HEALTH T VISIT [facility] 15 BANK ACCT MINUTES
--- OUTSIDE RECORDS SUMMARY | 2017-01-30 15:25 | External Medical Summary Rpt | CCD ---
Author Author , FELICITAS Elizabeth FELICITAS Address Unknown Phone [email or web address] Care Team Providers Care Emt Intermediate Name Role Phone ANDREE FLORIAN, Unavailable Unavailable ANDREE FLORIAN [facility] Unavailable Unavailable LAB, [facility] Maria Teresa LOGAN, DOREEN, Unavailable Unavailable VICKI HITCHCOCK HALL, Unavailable Unavailable VICKI Welsh HARPEGamal POPPY, HARPEL Unavailable Unavailable POPPY [facility] Unavailable Unavailable CENTER, [facility] Unavailable Unavailable INC, [facility] GAGAN PEÑA, Unavailable Unavailable GAGAN PEÑA [facility] Unavailable Unavailable LABORATORY, [facility] Unavailable Unavailable [facility] Unavailable Unavailable LAB, PATHOLOGY & CYTOLOGY LAB REJI MOE, Unavailable Unavailable REJI MOE [facility] Unavailable Unavailable #591, [facility] # Unavailable Unavailable [id number], [facility] # [id number] Purpose Continuity of Care Document - 10-23-2008 through 2016 Problems Code Diagnosis DOS Provider Status V242 ROUTINE 08-08-2009 [facility] V7231 ROUTINE 08-08-2009 [facility] GYNECOLOGIC HEALTH SD CLINIC OF EXAMINATION [facility] 605 REDUNDANT 06-25-2009 [facility] PHIMOSIS 79842 PREV C/S 06-25-2009 [facility] W/WO CLINIC OF MENTION [facility] COND V270 OUTCOME OF 06-25-2009 [facility]OMEN'[facility] DELIVERY HEALTH SINGLE [facility] V3001 SINGLE 06-25-2009 [facility] BY V221 SUPERVISION 06-20-2009 WOMEN'S OF OTHER HEALTH NORMAL [facility] 462 ACUTE 06-11-2009 NEW PHARYNGITIS [facility] PSC 3671 MYOPIA 05-22-2009 [facility] 84440 ABNORMAL 04-20-2009 [facility] MATERNAL HEALTH GLUCOSE [facility]IN[facility] OF [place]OL[place] ANTE[facility] V283 ENCOUNTER 02-15-2009 WOMEN'S ROUTINE HEALTH SCREEN CLINIC OF MALFORMATIO [place] N [facility] ULTRASONIC V0481 NEED 02-09-2009 [facility]EN'[facility] PROPHYLACTI HEALTH C CLINIC OF VACCINATION [place] &INOCULATIO [facility] N FLU V220 SUPERVISION 01-12-2009 WOMEN'S OF NORMAL HEALTH FIRST [facility]IN[facility] OF [place] [facility] 15626 OTHER 11-30-2008 [facility]OMEN'S SPECIFED HEALTH COMPLICATIO CLINIC OF N [place] ANTEPARTUM [facility] V745 SCREENING 11-22-2008 PATHOLOGY & EXAMINATION CYTOLOGY [...] DOS Code Location Performer Comment CYTP C/V 02015 PATHOLOGY PATHOLOGY AUTO THIN 0 & & LYR CYTOLOGY CYTOLOGY PREPJ SCR LAB LAB [facility] 15864 FAMILY LOGANMaria Teresa DISCHARGE 0 CARE G DAY ASSOCIATE MANAGEMEN S T 30 MIN/< SUBQ 42425 Maria Teresa [facility] 0 CARE G CARE PER ASSOCIATE DAY E/M S NORMAL CIRCUMCIS 46358 Maria Teresa LOGAN ION 0 CARE G W/CLAMP/O ASSOCIATE TH DEV S W/BLOCK LOW 741 [facility] CERV[facility] 0 [facility] INC SECTION 1ST 84329 Maria Teresa [facility]/FAHAD 0 CARE G [facility] S CARE PER DAY NML NB ANESTHESI 24186 [facility] Maxx MOE 0 ANESTH REJI A OF THE DELIVERY [place] ONLY 09498 [facility] HARPEL DELIVERY 0 PHYSICIAN POPPY ONLY GROUP PCC 29227 [facility], DELIVERY 0 HEALTH ANDREE J ONLY CLINIC OF W/POSTPAR [facility]SCAR CARE [facility] CUL BACT 04570 [facility] XCPT 0 CLINIC CLINIC URINE LABORATOR LABORATOR BLOOD/STO Y Y OL AEROBIC ISOL CUL BACT 97817 [facility] XCPT 0 PHYSICIAN PHYSICIAN URINE S LAB S LAB BLOOD/STO OL AEROBIC ISOL OPHTH 72244 CORA PEÑA, MEDICAL 0 VISION GAGAN A XM&EVAL COMPRHNSV ESTAB PT 1/> GLUCOSE 55178 [facility], POST 0 HEALTH ANDREE J GLUCOSE CLINIC OF DOSE [facility] GLUCOSE 26737 [facility], TOLERANCE 0 HEALTH ANDREE J TEST GTT CLINIC OF 3 SPECIMENS [facility] US PREG 67552 [facility], UTERUS 9 HEALTH ANDREE J AFTER 1ST CLINIC OF TRIMEST [place] GESTATION [facility] IMMUNE 92436 [facility], ADMIN 9 HEALTH ANDREE J H1N1 CLINIC OF IM/NASAL INCL CNSL [place] [address] [facility] ESTRIOL 9 [facility] INC INC GONADOTRO 68992 [facility] PIN 9 [facility] CHORIONIC INC INC QUANTITAT GRAYSON ALPHA-FET 76988 [facility] OPROTEIN 9 [facility] SERUM INC [place] PREG 68117 [facility], UTERUS 9 HEALTH ANDREE J REAL TIME CLINIC OF W/IMAGE DCMTN [place] TRANSVAG [facility] IADNA 17798 PATHOLOGY PATHOLOGY NEISSERIA 9 & & CYTOLOGY CYTOLOGY GONORRHOE LAB LAB AE AMPLIFIED PROBE TQ MOLECULAR 29753 MOLECULAR MOLECULAR DX AMP 9 TARGET PATHOLOGY PATHOLOGY MULTIPLEX LAB LAB EA ADDL NETWORK NETWORK SEQ INC INC MOLEC 12670 MOLECULAR MOLECULAR SEP&ID HI 9 RESOLU PATHOLOGY PATHOLOGY TQ EACH LAB LAB NUCLEIC NETWORK NETWORK ACID PREP INC INC MOLEC 94078 MOLECULAR MOLECULAR ISOL/XTRJ 9 HP PATHOLOGY PATHOLOGY NUCLEIC LAB LAB ACID EA NETWORK NETWORK TYPE INC INC IADNA 32063 PATHOLOGY PATHOLOGY CHLAMYDIA 9 & & CYTOLOGY CYTOLOGY TRACHOMAT LAB LAB IS AMPLIFIED PROBE TQ CYTP C/V 59636 PATHOLOGY PATHOLOGY AUTO THIN 9 & & LYR CYTOLOGY CYTOLOGY PREPJ SCR LAB LAB MNL RESCR PHYS MOLECULAR 44480 MOLECULAR MOLECULAR DX AMP 9 TARGET PATHOLOGY PATHOLOGY MULTIPLEX LAB LAB 1ST 2 NETWORK NETWORK SEQ INC INC MOLECULAR 33479 MOLECULAR MOLECULAR 9 DIAGNOSTI PATHOLOGY PATHOLOGY CS LAB LAB INTERPRET NETWORK NETWORK ATION & INC INC REPORT MUTATION 34543 MOLECULAR MOLECULAR ID 9 ENZYMATIC PATHOLOGY PATHOLOGY LAB LAB LIG/PRIME NETWORK NETWORK R XTN 1 INC INC SGM EA URINE 89279 [facility]/CO TOMMY 9 HEALTH CO [facility] VISUAL BANK ACCT COLOR CMPRSN METHS Encounters Encounter Start End Date Code Location Performer Type Date OFFICE 58374 [facility], OUTPATIEN 0 0 HEALTH ANDREE J T VISIT CLINIC OF 25 MINUTES [facility] OFFICE 66372 [facility], OUTPATIEN 0 0 HEALTH ANDREE J T VISIT CLINIC OF [address] [facility] [place] TOMMY - 0 0 [facility] INPATIENT INC OFFICE 57636 [facility], OUTPATIEN 0 0 HEALTH ANDREE J T VISIT CLINIC OF 15 MINUTES [facility] OFFICE 80569 [facility], OUTPATIEN 0 0 HEALTH ANDREE J T VISIT CLINIC OF 15 MINUTES [facility] OFFICE 71570 [facility] LI, OUTPATIEN 0 0 SANDRA VICKI R T VISIT CLINIC 15 PSC MINUTES OFFICE 19080 [facility], OUTPATIEN 0 0 HEALTH ANDREE J T VISIT CLINIC OF 15 MINUTES [facility] OFFICE 53717 [facility], OUTPATIEN 0 0 HEALTH ANDREE J T VISIT CLINIC OF 15 MINUTES [facility] OFFICE 79130 [facility], OUTPATIEN 0 0 HEALTH ANDREE J T VISIT CLINIC OF 15 MINUTES [facility] OFFICE 69685 [facility], OUTPATIEN 0 0 HEALTH ANDREE J T VISIT 5 CLINIC OF MINUTES [facility] [place] TOMMY - 0 0 [facility] OUTPATIEN INC T OFFICE 02388 [facility], OUTPATIEN 0 0 HEALTH ANDREE J T VISIT CLINIC OF 15 MINUTES [facility] OFFICE 57343 [facility], OUTPATIEN 9 9 HEALTH ANDREE J T VISIT CLINIC OF 15 MINUTES [facility] OFFICE 03752 [facility], OUTPATIEN 9 9 HEALTH ANDREE J T VISIT CLINIC OF 15 MINUTES [facility] OFFICE 16064 [facility], OUTPATIEN 9 9 HEALTH ANDREE J VISIT CLINIC OF [address] [facility] [place] TOMMY - 9 9 [facility] OUTPATIEN INC T OFFICE 03729 W[facility]EN[facility]S ANIAVL OUTPATIEN 9 9 HEALTH ANDREE J VISIT CLINIC OF 15 MINUTES [facility] OFFICE 08764 [facility]REE J VISIT [facility]IN[facility] OF 15 MINUTES [facility] OFFICE 23793 [facility] 9 HEALTH CO [facility]ALTH T VISIT [facility] 15 BANK ACCT MINUTES
--- OUTSIDE RECORDS SUMMARY | 2017-01-30 15:26 | External Medical Summary Rpt ---
Author Author FELICITAS Nicholas, FELICITAS Nicholas Organization [employer] Address Unknown Phone Unavailable
--- OUTSIDE RECORDS SUMMARY | 2017-01-30 15:26 | External Medical Summary Rpt | CCD ---
Author Author , FELICITAS Organization [employer] Address Unknown Phone [email or web address] Immunization Name Date Rout CVX Reac Dose Comm Prov Is Faci e tion ent ider Refu lity Give sed n Tdap 02-0 115 0.5 Hist [facility]EX[facility] No LEX[facility] , 2-20 mL oric WILNER WILNER Adso 15 al rbed Info rmat ion - Sour ce Unsp ecif ied
--- OUTSIDE RECORDS SUMMARY | 2017-01-30 15:26 | External Medical Summary Rpt | CCD ---
Author Author , FELICITAS Organization FELICITAS Address Unknown Phone [email or web address] Immunization Name Date Rout CVX Reac Dose Comm Prov Is Faci e tion ent ider Refu lity Give sed n Tdap 02-0 115 0.5 Hist [facility] No [place]EXC , 2-20 mL oric WILNER WILNER Adso 15 al rbed Info rmat ion - Sour ce Unsp ecif ied
== END 2017-01-29 19:57 | disposition home or self-care (01) ==
LOC: UTC 19:02
DX: J06.9 Acute upper respiratory infection, unspecified (principal); J45.909 Unspecified asthma, uncomplicated; Z88.0 Allergy status to penicillin; Z88.1 Allergy status to other antibiotic agents